=== PATIENT | female | born 1960 | race African-American/Black ===

== ENCOUNTER 2018-12-22 07:25 | Inpatient (IN) ==
[2018-12-22 09:03] LABS: INR 0.99; PROTIME 13.9 Seconds (11.0-16.0)
[2018-12-22 09:04] LABS: PTT 31.6 Seconds (22.3-41.8)
[2018-12-22] MEDS ORDERED: NS 1,000 ML ONE (11:46)
[2018-12-22 12:24] LABS: URINE SOURCE CATH
[2018-12-22 12:35] LABS: BILIRUBIN URINE NEGATIVE (NEGATIVE); BLOOD URINE LARGE (NEGATIVE); COLOR BROWN; GLUCOSE URINE 70 mg/dL (NEGATIVE); KETONE URINE NEGATIVE (NEGATIVE); LEUKOCYTES URINE TRACE (NEGATIVE); NITRITE URINE NEGATIVE (NEGATIVE); PROTEIN URINE 600 mg/dL (NEGATIVE); SP GRAVITY URINE 1.017; TURBIDITY URINE TURBID (CLEAR); UROBILINOGEN URINE NORMAL (NORMAL)
--- NOTE | 2018-12-22 13:04 | Diag Imaging Result Doc PS360 ---
EXAM: CT RENAL BX, PERCUTANEOUS INDICATION: RENAL BX TECHNIQUE: COMPARISON: None. FINDINGS: Risks, benefits, and alternatives were discussed with the patient and informed consent was obtained. Patient was placed in a prone position and was prepped and draped in sterile fashion. Local anesthesia was achieved with 1% lidocaine solution. Using CT guidance and a coaxial biopsy needle system, a 1.3 cm core biopsies of the right renal cortex at the inferior aspect of the kidney were obtained. There were no known immediate complications. The patient will be monitored in outpatient surgery. IMPRESSION: Technically successful CT-guided right renal biopsy. Electronically signed by Calixto Hendrix 12/22/2018 1:02 PM
[2018-12-22 13:10] LABS: UR EPITHELIAL CELLS <10 /HPF (<10); URINE BACTERIA NEGATIVE /HPF; URINE RBC TNTC /HPF (<10); URINE WBC <10 /HPF (<10)
[2018-12-22] MEDS ORDERED: TYLENOL PO PRN (13:53)
[2018-12-22] MEDS ORDERED: NS 1,000 ML IV SCH (14:00)
[2018-12-22 15:02] LABS: HEMATOCRIT 22.6 % (37.0-47.0); HEMOGLOBIN 7.6 g/dL (12.0-16.0)
[2018-12-22 15:06] LABS: CREATININE 2.5 mg/dL (0.5-0.9); POTASSIUM 5.4 mmol/L (3.5-5.1)
--- NOTE | 2018-12-22 15:14 | Diag Imaging Result Doc PS360 ---
EXAM: CT ABDOMEN/PELVIS W/O CONTRAST INDICATION: S/P renal bx hematuria TECHNIQUE: This exam was performed using automated exposure control, adjustment of mA or kV according to patient size, and/or use of iterative reconstruction technique. COMPARISON: Prebiopsy CT of the abdomen dated 12/22/2018 FINDINGS: There is a small amount of perinephric acute blood on the right at the biopsy site, but it is not more than would be expected status post renal biopsy. However, there is a significant amount of blood in the right renal collecting system and right ureter and a large amount of blood in the urinary bladder lumen. The right renal collecting system is mildly dilated as a result of the blood in the collecting system and ureter. This dilation was not present on the prebiopsy scan. There is a Hicks catheter in the urinary bladder lumen. The bladder is partially distended. There are also a couple of tiny droplets of air around the right kidney, which are expected from the recent biopsy. The liver, gallbladder, spleen, pancreas, and adrenal glands are essentially unremarkable. There has been a prior hysterectomy. The appendix is normal. The remainder of the GI tract is essentially unremarkable. IMPRESSION: 1.Small amount of right perirenal acute blood, but it is not more than would be expected given the recent renal biopsy. 2.Significant amount of acute blood in the right renal collecting system, right ureter, and urinary bladder with development of mild hydronephrosis as compared to the prebiopsy scan. Electronically signed by Calixto Hendrix 12/22/2018 3:12 PM
[2018-12-22] MEDS ORDERED: DDAVP IV ONE ×2 (20:30→21:00)
--- NOTE | 2018-12-22 20:55 | NEPHROLOGY CONSULTATION ---
DATE: 12/22/2018 REASON FOR OUTPATIENT OBSERVATION: Elective renal biopsy. REASON FOR INPATIENT OBSERVATION AND CONSULTATION: Post biopsy bleeding. HISTORY OF PRESENT ILLNESS: Ms. Pompa is a 58-year-old woman with diabetes, hypertension, and hyperlipidemia. She is followed by Dr. Ribeiro in the outpatient CKD Clinic. Based on recent change in her kidney function, they discussed and planned for diagnostic renal biopsy. She was taking 1 aspirin a day, but no other anticoagulation. Blood pressure was well controlled in the office. She underwent her biopsy this morning at approximately 8:00. Subsequent to that, she had hematuria with clots and some difficulty initiating her stream and in pain. She did not develop hypotension or tachycardia. Hicks catheter was placed and she had significant amount of bloody urine, but immediate relief of her discomfort. Because of her significant bleeding and marginal hemoglobin on her preoperative labs (8.2), she is admitted for observation and she will receive 1 unit of packed red blood cells. Her examination performed at approximately noon found her to have no pain, no shortness of breath, no chest discomfort, etc. PAST MEDICAL HISTORY: As above. HOME MEDICATIONS: Include: 1. Aspirin. 2. Benazepril. 3. Cholecalciferol. 4. Cyanocobalamin. 5. Diltiazem, 6. Gemfibrozil. 7. Loratadine. 8. Metoprolol. 9. Pravastatin. 10. Spironolactone. 11. Allopurinol. 12. Iron. 13. Omeprazole. ALLERGIES: Codeine. SOCIAL HISTORY: Otherwise noncontributory. FAMILY HISTORY: Otherwise noncontributory. REVIEW OF SYSTEMS: Otherwise noncontributory. PHYSICAL EXAMINATION: Vital Signs: Blood pressure 130/104, heart rate 107, respirations 20, afebrile. General: No acute distress. Skin: Warm and dry. Conjunctivae are pink. Pupils are equal. Neck: Neck veins are not distended. HEENT: Oropharynx is clear. Normal tongue. Normal teeth. Heart: PMI is nondisplaced. Regular rate and rhythm. Mildly tachycardic. No gallops or murmurs. Lungs: Equal excursion, equal breath sounds. No crackles or wheezes. Abdomen: Soft, nontender. Bowel sounds are present. No organomegaly or masses. Extremities: No edema, clubbing, or cyanosis. IMPRESSION: Post biopsy bleeding. She will need to be admitted to the hospital for observation. I have reached out to the hospitalist team and they will take the lead on that. 1 unit of packed red blood cells was ordered. She will continue her home medications and we will monitor her hemoglobin carefully. Further recommendations to follow. cc: Tristan Shah MD
[2018-12-22] MEDS ORDERED: NS IV ONE (21:00)
[2018-12-22] MEDS: LOPRESSOR PO SCH (23:14)
--- NOTE | 2018-12-23 03:45 | HISTORY AND PHYSICAL ---
PRIMARY CARE PHYSICIAN: Dr. Ribeiro. CORRECTIVE THERAPIST: Dr. Shah. CHIEF COMPLAINT: Status post renal biopsy as an outpatient today with postop hematuria, symptomatic anemia, and dizziness and lightheadedness. HISTORY OF PRESENTING ILLNESS: This is a 58-year-old, female who presented to outpatient surgery initially this morning for an outpatient renal CT biopsy. The patient had the procedure and did well during the procedure. Returned to outpatient surgery and began passing some bright red clots of blood vaginally. Stated she felt pressure, that she needed to urinate but was unable. They inserted an indwelling Mosquera catheter and immediately got urine return that was sahni-colored in color. She complained of being dizzy and lightheaded. They rechecked a hematocrit. That was 23.3. Was contacted by Dr. Shah, nephrology, who felt that the patient needed to be admitted to the hospitalist services for overnight observation for further evaluation and treatment. PAST MEDICAL HISTORY: Hypertensive neuropathy with proteinuria, chronic kidney disease stage 3, gout, GERD, anemia with chronic kidney disease with iron deficiency anemia and vitamin D deficiency. PAST SURGICAL HISTORY: section. FAMILY HISTORY: Reviewed and noncontributory. SOCIAL HISTORY: She currently lives with her boyfriend. Denied any tobacco, alcohol, or illicit drug use. ALLERGIES: Codeine. HOME MEDICATIONS: A current list will need to be obtained, reconciled, reviewed, and restarted as appropriate, and will place an order for nursing to update and confirm home medications. LABORATORY DATA: This morning, she had a hemoglobin that was 8.2. This afternoon, status post procedure, they did a hematocrit that was 23.3. The PT and INR were 13.9 and 0.99. Urinalysis with a large amount of blood, trace leukocytes, negative bacteria. Urine culture is pending. REVIEW OF SYSTEMS: She denied any fever or chills. She did have some blurred vision, dizziness, lightheadedness. Denied any chest pain, coughing, shortness of breath. She denied any abdominal pain except for when she first started having some clots that she felt like she needed to urinate but could not. Once the indwelling Mosquera catheter was inserted, she no longer felt that pressure. Denied any nausea, vomiting, diarrhea, constipation. She denies any burning with urination. She was passing some bright red clots of blood initially status post her procedure. Now has some sahni-colored urine noted in her Mosquera catheter bag. PHYSICAL EXAMINATION: VITAL SIGNS: On arrival, she had a temperature of 97.4 degrees, pulse 95, respirations 18, blood pressure 136/76, saturating 100% on room air. GENERAL: This is a 58-year-old, female who is lying in the bed and answers questions appropriately. HEENT: Normocephalic, atraumatic. Normal ENT inspection. Oropharynx and nares are clear. Eyes: Pupils are equal, round, and reactive to light and accommodation. Extraocular movements are intact. NECK: Normal inspection. Normal range of motion. LUNGS: Clear to auscultation bilaterally with equal lung expansion and chest wall movement. HEART: With regular rate and rhythm. No murmurs, rubs, or gallops. ABDOMEN: Soft, nontender, nondistended. Bowel sounds are present x4 quadrants. GENITOURINARY: She is noted to have an indwelling Mosquera catheter, draining sahni-colored urine at this time. MUSCULOSKELETAL: She has 5/5 strength x4 extremities. NEUROLOGICAL: The cranial nerves 2-12 are grossly intact. ASSESSMENT: 1. Status post renal CT biopsy. 2. Hematuria secondary to #1. 3. Chronic kidney disease stage 3. 4. Hypertension. PLAN: She will be admitted to the surgical unit, placed on a regular diet, telemetry. We will consult nephrology. We will attempt to do a CT of the abdomen and pelvis with IV contrast but we need to check a BUN and creatinine first. If not, we will do a CT of the abdomen and pelvis without contrast. Placed on normal saline at 75 mL an hour, Tylenol 650 p.o. q.6 hours p.r.n., Zofran 4 mg IV q.[address] SCDs for DVT prophylaxis. Remain on strict bedrest. We are going to transfuse 1 unit of packed red blood cells now. Then we will do hemoglobin and hematocrit q.4 hours x6. We will update and verify home medications, and restart as appropriate. The patient does states she has taken her home medications today already so we will review those and see what we need to continue once they are confirmed. Dictated by KEIRY Jordan for Manjit Hayes MD cc: KEIRY Jordan Dr. Agree with above. the following is my own face to face eval. Patient largely asymptomatic at this point. abdomen soft, nontender. however, large bright red blood draining from mosquera which is ongoing. patient placed on bedrest. monitor blood counts and transfuse as needed. MTDD
[2018-12-23 07:04] LABS: HEMATOCRIT 22.4 % (37.0-47.0); HEMOGLOBIN 7.4 g/dL (12.0-16.0); MCH 30.2 PG (27-31); MCV 91.4 FL (81-99); MPV 10.2 FL (7.4-10.4); RBC 2.45 XMIL (4.2-5.4); RDW 14.9 % (11.5-14.5); WBC 9.38 X1000 (4.8-10.8)
[2018-12-23 07:10] LABS: ALBUMIN 2.9 g/dL (3.5-5.0); CALCIUM 8.4 mg/dL (8.8-10.2); CREATININE 2.6 mg/dL (0.5-0.9); PHOSPHORUS 4.4 mg/dL (2.7-4.5); POTASSIUM 5.8 mmol/L (3.5-5.1)
--- NOTE | 2018-12-23 10:31 | NEPHROLOGY PROGRESS NOTE ---
DATE: 12/23/2018 TIME SEEN: 06:30 a.m. SUBJECTIVE: Patient's hematocrit has held stable overnight. Patient has had no new issues. OBJECTIVE: Vital Signs: Temperature 98.3 degrees, pulse 86, respiratory rate 18, blood pressure 99/57. Intake 2.1 L. Output 950 mL via Hicks catheter. General: This is a middle-aged female, resting in bed. No acute distress. HEENT: Normocephalic, atraumatic. Conjunctivae pink. Oral mucosa moist. Neck: Supple. No JVD. Cardiovascular: Regular rate and rhythm. Pulmonary: She is clear bilaterally. No increased work of breathing. Abdomen: Soft, positive bowel sounds. Genitourinary: She has a Hicks catheter. She has a dark maroon-colored urine noted. Extremities: No clubbing, cyanosis or edema. Integumentary: Skin is warm and dry. LABORATORY DATA: WBC of 9.3, hemoglobin 7.4, hematocrit 22.4, follow-up hematocrit 23.6. ASSESSMENT AND PLAN: Post biopsy bleeding. She continues to have dark maroon urine. We will ask the nurses to irrigate her Hicks catheter and bladder to clear and then allow to drain. They are to notify us if she has further bleeding. Her hemoglobin appears to have dropped slightly. She may need another unit of packed red blood cells. I will check her next set of labs her in a couple of hours and make that decision. Her hematocrit appears stable. If her urine remains clear, hopefully we can remove the Hicks catheter and facilitate getting her home. Dictated by KEIRY Castellanos for Tristan Shah MD Face to face encounter, data reviewed, discussed with Asa Bray on 12/23/18. I agree with the above assessment and plan of care. cc: Tristan Shah MD [facility]
[2018-12-23] MEDS ORDERED: LOPRESSOR PO SCH (10:45)
--- NOTE | 2018-12-23 10:55 | PROGRESS NOTE ---
DATE: 12/23/2018 SUBJECTIVE: The patient is sitting up in bed. No complaints voiced at this time. States she has had some tenderness to the right flank area where the biopsy of her kidney was done yesterday. OBJECTIVE: Vital Signs: Temperature 98.8 degrees, pulse 84, respirations 18, blood pressure 120/60, saturating 100% on room air. HEENT: Normocephalic, atraumatic. Normal ENT inspection. Oropharynx and nares are clear. Neck: Normal inspection. Normal range of motion. Lungs: Clear to auscultation bilaterally with equal lung expansion and chest wall movement. Heart: Regular rate and rhythm. No murmurs, rubs, or gallops. Abdomen: Soft, nontender, nondistended. Bowel sounds are present x4 quadrants. Musculoskeletal: Has 5/5 strength in 4 extremities. Neurological: The patient is alert and oriented to person, place, and time. Laboratory Data: Showed a white blood cell count of 9.38, hemoglobin 7.4, hematocrit 22.4. Sodium 141, potassium 5.8, chloride 118, CO2 14, BUN of 40, creatinine 2.6. ASSESSMENT: 1. Status post renal biopsy, right. 2. Hematuria secondary to #1. 3. Anemia secondary to #1 and #2. 4. Chronic kidney disease stage 3. 5. Hypertension. PLAN: She is noted to have had a decrease in her hemoglobin and hematocrit. We are transfusing 1 unit of packed red blood cells at this time. Nurse is at bedside to irrigate Hicks, continues to drain a dark maroon urine. We will continue serial hematocrits q.4 hours. We are going to check another hemoglobin and hematocrit around 1 p.m. today after this unit of blood has infused. Nephrology continues to follow the patient. We will start her back on her home medications as they have been updated and confirmed. Dictated by KEIRY Jordan for Manjit Hayes MD cc: KEIRY Jordan Agree with above. the following is my own face to face assessment. abdomen still with mild R sided tenderness but otherwise benign. still with significant ongoing bleeding. discussed with nephrology. we are attempting to send the patient to [place] for embolization. anticipate her returning here afterwards. DOMINIC
[2018-12-23] MEDS: LOPRESSOR PO SCH ×2 (11:26→21:30)
[2018-12-23] MEDS: FERROUS SULFATE PO SCH ×2 (13:39→17:27)
[2018-12-23] MEDS: PRILOSEC PO SCH (13:39)
[2018-12-23] MEDS: CARDIZEM CD PO SCH (13:39)
[2018-12-23] MEDS: FISH OIL CONCENTRATE PO SCH (13:40)
[2018-12-23] MEDS: ZYLOPRIM PO SCH (13:40)
[2018-12-23] MEDS: VITAMIN D PO SCH (13:40)
[2018-12-23] MEDS: VITAMIN B-12 PO SCH (13:40)
[2018-12-23] MEDS: LOTENSIN PO SCH (13:40)
[2018-12-23] MEDS: LOPID PO SCH ×2 (13:40→21:28)
[2018-12-23] MEDS: CLARITIN PO SCH (13:41)
[2018-12-23 14:10] LABS: HEMATOCRIT 27.9 % (37.0-47.0); HEMOGLOBIN 9.2 g/dL (12.0-16.0)
[2018-12-23] MEDS: ZOFRAN IV PRN (20:18)
[2018-12-23] MEDS ORDERED: MORPHINE IV ONE (20:35)
[2018-12-23] MEDS ORDERED: BENADRYL IV ONE (20:37)
[2018-12-23] MEDS: PRAVACHOL PO SCH (21:28)
[2018-12-23] MEDS ORDERED: SODIUM CHLORIDE 0.9% INJ ONE (23:02)
[2018-12-23] MEDS ORDERED: PHENERGAN IV ONE (23:02)
[2018-12-24] MEDS: ZOFRAN IV PRN (03:52)
[2018-12-24] MEDS: MORPHINE IV PRN ×3 (05:45→19:01)
[2018-12-24] MEDS: PRILOSEC PO SCH ×2 (05:48→08:19)
[2018-12-24] MEDS ORDERED: SODIUM CHLORIDE 0.9% INJ ONE (06:40)
[2018-12-24] MEDS ORDERED: PHENERGAN IV ONE (06:40)
[2018-12-24 06:46] LABS: HEMATOCRIT 29.5 % (37.0-47.0); HEMOGLOBIN 9.7 g/dL (12.0-16.0); MCH 30.3 PG (27-31); MCHC 32.9 g/dL (33-37); MCV 92.2 FL (81-99); RBC 3.2 XMIL (4.2-5.4); RDW 15.5 % (11.5-14.5); WBC 18.53 X1000 (4.8-10.8)
[2018-12-24 07:26] LABS: ALBUMIN 3.3 g/dL (3.5-5.0); CREATININE 2.9 mg/dL (0.5-0.9); PHOSPHORUS 6.1 mg/dL (2.7-4.5)
[2018-12-24 07:46] LABS: POTASSIUM 6.3 mmol/L (3.5-5.1)
[2018-12-24] MEDS ORDERED: COMPAZINE IV PRN (07:48)
[2018-12-24] MEDS ORDERED: KAYEXALATE PO ONE (07:50)
[2018-12-24] MEDS ORDERED: PHENERGAN PR PRN (07:50)
[2018-12-24] MEDS: VITAMIN B-12 PO SCH (08:46)
[2018-12-24] MEDS: VITAMIN D PO SCH (08:46)
[2018-12-24] MEDS: LOPRESSOR PO SCH ×2 (08:46→22:48)
[2018-12-24] MEDS: LOTENSIN PO SCH (08:46)
[2018-12-24] MEDS: FERROUS SULFATE PO SCH ×3 (08:46→17:33)
[2018-12-24] MEDS: FISH OIL CONCENTRATE PO SCH (08:46)
[2018-12-24] MEDS: ZYLOPRIM PO SCH (08:46)
[2018-12-24] MEDS: LOPID PO SCH ×2 (08:46→22:48)
[2018-12-24] MEDS: CLARITIN PO SCH (08:46)
[2018-12-24] MEDS: CARDIZEM CD PO SCH (08:46)
[2018-12-24] MEDS: NS 1,000 ML IV SCH (13:27)
[2018-12-24 16:08] LABS: ESTIMATED GFR 18
[2018-12-24 16:09] LABS: AGAP 8; ALBUMIN 3.2 g/dL (3.5-5.0); BUN 48 mg/dL (8-22); CALCIUM 8.9 mg/dL (8.8-10.2); CHLORIDE 115 mmol/L (98-107); COSMO 288; CREATININE 3.2 mg/dL (0.5-0.9); GLUCOSE 126 mg/dL (70-104); PHOSPHORUS 4.9 mg/dL (2.7-4.5); POTASSIUM 5.4 mmol/L (3.5-5.1); SODIUM 137 mmol/L (136-145); TCO2 14 mmol/L (25-35)
--- NOTE | 2018-12-24 16:22 | Diag Imaging Result Doc PS360 ---
EXAM: CT ABDOMEN/PELVIS W/O CONTRAST 12/24/2018 HISTORY: fever, leukocytosis, nausea. rcnt kidney biopsy TECHNIQUE: This exam was performed using automated exposure control, adjustment of mA or kV according to patient size, and/or use of iterative reconstruction technique. COMMENT: There is minimal atelectasis in the posterior costophrenic sulcus of the right lower lobe otherwise has been no significant change since 12/22/2018. There is perinephric stranding on the right. There is hyperdense material throughout the collecting system of the right kidney and into the right ureter as well as in the bladder. There is a Hicks catheter. There may be blood clots in the bladder. The hyperdense material in the collecting system on the right is denser than it was at the time the previous examination. This may result from interval intravenous contrast administration. There are small stones dependently in the gallbladder as on the previous examination. There is some dense material within the stomach which may be ingested contrast or other hyperdense material. There is stranding around the second portion of the duodenum which was not clearly present at the time the previous study but may be related to inflammatory changes in the anterior pararenal space. There is a focus of decreased attenuation in the posterior inferior portion of the right kidney which is probably a cyst and was apparently present previously. This has a CT density of 13 Hounsfield units. Some gas bubbles are seen in the perinephric space laterally. This was also the case previously and is presumably related to the previous biopsy. There is less apparent perinephric hematoma than on the previous study. There is generally increased edema and stranding within and around Gerota's fascia compared to the previous study. The patient has had recent embolization of a bleeding focus in the right kidney communicating with the collecting system and producing hematuria as a result of the recent kidney biopsy. It is possible post embolization affects could be responsible for some of the perinephric inflammation. The regional skeleton appears to be stable. IMPRESSION: 1. Excreted contrast and possible blood clots in the right collecting system and urinary bladder. Slightly worsened perinephric edema and edema and inflammatory changes in the anterior pararenal space on the right. 2. Inflammatory changes around the second portion of the duodenum which may be secondary to the above or due to interval development of duodenitis or duodenal ulcer disease. The findings were discussed with Manjit Hayes MD at 12/24/2018 4:19 PM. Electronically signed by Jerome Shannon 12/24/2018 4:19 PM
[2018-12-24 16:46] LABS: ALLEN TEST YES; BE -13.1 mmoll (-3.0-3.0); BLOOD TYPE ARTERIAL; HCO3-(ACT) 14.7 mmoll (20.0-26.0); O2(CT) 13.4 mL/dL (15.0-23.0); O2HB 95.7 % (95.0-99.0); PCO2(98.6) 27 mmHg (35-45); PO2(98.6) 87 mmHg (60-100); SAMPLE BLOOD; SAO2 98.4 % (95.0-100.0); THB 9.9 g/dL (11.5-17.4); pH(98.6) 7.27 (7.35-7.45)
[2018-12-24 16:56] LABS: ACETONE SERUM NEGATIVE (NEGATIVE)
--- NOTE | 2018-12-24 17:12 | NEPHROLOGY PROGRESS NOTE ---
DATE: 12/24/2018 SUBJECTIVE: She is feeling better today. She was passing blood clots this morning, but that has cleared up. No pain. She has not been out of bed yet. She was able to eat. OBJECTIVE: Blood pressure 153/65, heart rate 106, respirations 16, afebrile. Generally, no acute distress. Skin is warm and dry. Conjunctivae are pink. Neck veins are not distended. Heart is regular, no gallops or murmurs. Lungs are equal. No crackles or wheezes. Abdomen is soft, nontender. Bowel sounds present. Extremities: No edema, clubbing, or cyanosis. IMPRESSION: 1. Chronic kidney disease. I do not have a report back again on her kidney biopsy. 2. Post biopsy bleeding. She underwent intervention by Interventional Radiology in [place]. Her bleeding is improved and her hemoglobin is stable. We will begin to get her up today. 3. She does have a low-grade fever and a white count of 18,000. This may all be simply from being in bed and stress. We will observe overnight. 4. Her potassium was moderately elevated, and she received a dose of Kayexalate this morning. 5. She also has an anion gap acidosis so I am checking her lactate and acetone. cc: Tristan Shah MD
--- NOTE | 2018-12-24 17:14 | PROGRESS NOTE ---
DATE: 12/24/2018 INTERVAL HISTORY: Because of ongoing bleeding yesterday, the patient was transferred to [place] [facility] for embolization to stop her renal bleeding. This appears to have worked as the patient's hematuria is almost entirely resolved at this point. However, today the patient has had increased nausea and vomiting, some slightly increased pain on the right abdomen, and later had some mildly elevated temperatures. She denies cough, dyspnea, chest pain, diarrhea. REVIEW OF SYSTEMS: A 12-point review of systems negative except as per interval history. LABORATORY DATA: WBC 18.5, hemoglobin 9.7, hematocrit 29.5, platelet 216,000. Initial potassium 6.3, repeat 5.4. Initial bicarb 8, repeat 14. Initial creatinine 2.9, repeat 3.2. Glucose 118, phosphorus 6.1, repeat 4.9. Albumin 3.3. Lactate pending. Blood cultures pending. IMAGING: Repeat CT abdomen and pelvis with contrast and possible clots in the right collecting system and bladder, minimally worse stranding/inflammatory changes around the right kidney, also with inflammatory changes around the second portion of the duodenum, which could be due to the above or due to development of duodenitis or duodenal ulcer disease. VITAL SIGNS: T-max 99.9 degrees, pulse 104, respirations 16, blood pressure 158/80, O2 saturation 99% on room air. PHYSICAL EXAMINATION: General: No acute distress. Ill appearing. Vital Signs: As above. HEENT: Normocephalic, atraumatic. Slightly dry mucous membranes. Neck: No cervical adenopathy. Cardiovascular: Minimally tachycardic but regular. No murmurs noted. Pulmonary: Clear to auscultation bilaterally. No wheezing, rales, or rhonchi. Abdomen: Soft. Mild to moderate right-sided tenderness without rebound or guarding. Bowel sounds present. Extremities: Peripheral pulses intact. No clubbing, cyanosis, or edema. Neurologic: Cranial nerves grossly intact. No focal deficits identified. Psychiatric: Normal mood and affect. Awake, alert and oriented x3. Skin: No rales or lesions identified. ASSESSMENT AND PLAN: 1. Significant hematuria and bleeding status post renal biopsy. The patient was sent to [place] [facility] for embolization 12/23/2018. Hicks output since then has gradually cleared and become less bloody. On CT scan, still some debris that is likely blood in the collecting system and bladder, but overall renal bleeding appears to have at least slowed if not stalled. The patient still with adequate drainage from Hicks. Monitor output closely. 2. Nausea, vomiting, abdominal pain, and possible sepsis. The patient with nausea, vomiting, tachycardia, markedly increased white count and some mild elevations in temperature without suyapa fever. Because of her constellation of symptoms, there is concern for new or developing infection. Repeat CT obtained as above with no definite infection. On discussion with Radiology, stranding around kidney consistent with the procedures that she has had. No definite infarction of the kidney. Some stranding around the duodenum that could represent duodenitis or ulcer. Given the above plus new anion gap acidosis, the patient was placed on empiric Zosyn. Deferring more aggressive fluids in the setting of worsening kidney function. Blood cultures pending. Lactic acid pending, but on recheck of labs, gap acidosis appears to be largely resolved, although she still has a bit of a non gap metabolic acidosis. Continue antibiotics for now pending culture data and clinical course. 3. Possible duodenitis or duodenal ulcer. Blood counts appear stable today but will recheck this afternoon. Place on Protonix 40 b.i.d. If blood counts appear to be going back down, then we will ask GI to evaluate. 4. Hyperkalemia. The patient with worsening hyperkalemia today with potassium up to 6.3. Given Kayexalate after treatment for her nausea and on repeat, still slightly elevated, but improved to 5.4. Continue to monitor closely. 5. Acute kidney injury. The patient with creatinine trending up over the last couple of days. Nephrology on board and monitoring. Continue gentle fluids. Discontinuing ARSENIO inhibitor for now. 6. Gout. Allopurinol decreased in light of kidney function. 7. Hypertension, holding ARSENIO. Continue metoprolol and diltiazem for now. 8. Hyperlipidemia. Continue statin. 9. Gastroesophageal reflux disease. Proton pump inhibitor as above. [facility]
[2018-12-24 17:16] LABS: HEMATOCRIT 28.5 % (37.0-47.0); HEMOGLOBIN 9.5 g/dL (12.0-16.0)
[2018-12-24] MEDS: ZOSYN 2.25 GM in NS 50 ML IV SCH ×2 (17:33→22:57)
[2018-12-24] MEDS: PROTONIX IV SCH (17:33)
[2018-12-24] MEDS: PRAVACHOL PO SCH (22:49)
[2018-12-25] MEDS: ZOSYN 2.25 GM in NS 50 ML IV SCH ×5 (04:16→23:18)
[2018-12-25] MEDS: NS 1,000 ML IV SCH ×2 (04:16→21:24)
[2018-12-25] MEDS: SODIUM CHLORIDE 0.9% INJ SCH ×2 (05:43→17:35)
[2018-12-25] MEDS: PROTONIX IV SCH ×2 (05:43→17:35)
[2018-12-25 06:24] LABS: HEMOGLOBIN 7.5 g/dL (12.0-16.0); MCH 29.9 PG (27-31); MCHC 32.6 g/dL (33-37); MCV 91.6 FL (81-99); MPV 9.7 FL (7.4-10.4); RBC 2.51 XMIL (4.2-5.4); RDW 14.8 % (11.5-14.5); WBC 15.24 X1000 (4.8-10.8)
[2018-12-25 06:53] LABS: ALBUMIN 2.7 g/dL (3.5-5.0); CALCIUM 7.8 mg/dL (8.8-10.2); CREATININE 3.5 mg/dL (0.5-0.9); PHOSPHORUS 5.2 mg/dL (2.7-4.5); POTASSIUM 5.1 mmol/L (3.5-5.1)
[2018-12-25] MEDS ORDERED: AMIDATE ONE (10:40)
[2018-12-25] MEDS ORDERED: XYLOCAINE-MPF 2% ONE (10:40)
[2018-12-25] MEDS ORDERED: QUELICIN (DOSE) ONE (10:40)
[2018-12-25] MEDS ORDERED: ZOFRAN ONE (10:40)
[2018-12-25] MEDS: FERROUS SULFATE PO SCH ×3 (12:04→17:35)
[2018-12-25] MEDS: LOPRESSOR PO SCH ×2 (12:05→21:18)
[2018-12-25] MEDS ORDERED: FLOMAX PO ONE (12:15)
[2018-12-25] MEDS: CARDIZEM CD PO SCH (12:16)
[2018-12-25] MEDS: ZYLOPRIM PO SCH (12:17)
[2018-12-25] MEDS: VITAMIN B-12 PO SCH (12:17)
[2018-12-25] MEDS: VITAMIN D PO SCH (12:17)
[2018-12-25] MEDS: CLARITIN PO SCH (12:18)
[2018-12-25] MEDS: FISH OIL CONCENTRATE PO SCH (12:18)
[2018-12-25] MEDS: LOPID PO SCH ×2 (12:18→21:19)
[2018-12-25] MEDS: MORPHINE IV PRN (12:25)
[2018-12-25] MEDS: CARAFATE LIQUID PO SCH ×3 (14:04→21:18)
--- NOTE | 2018-12-25 14:30 | PROGRESS NOTE ---
DATE: 12/25/2018 INTERVAL HISTORY: The patient still with nausea. Occasional small volume of vomiting. This morning had a few tiny streaks of blood in her vomit but no suyapa hematemesis or coffee ground emesis. She was taken down by Urology this morning for cystoscopy and clean out residual clots right collecting system and bladder on CT yesterday. Reports she did have some blood clots when they went in, but stated they were able to clean this out. Some blood in urine since then but appears to be clearing. No other acute events. The patient continues to deny cough, dyspnea, chest pain, diarrhea. REVIEW OF SYSTEMS: Twelve point review of systems negative except as per interval history. LABS: WBC 15.2, hemoglobin 7.5, hematocrit 23.0, platelets 167,000. Sodium 141, potassium 5.1, bicarb 14, BUN 51, creatinine 3.5, glucose 112, potassium 7.8, phosphorus 5.2, albumin 2.7. VITALS: T-max at 100.5, pulse 89, respirations 19, blood pressure 152/73, O2 saturation 100% on room air. PHYSICAL EXAMINATION: General: No acute distress, but ill-appearing. Vitals: As above. HEENT: Normocephalic, atraumatic. No cervical adenopathy. Cardiovascular: Regular rate and rhythm, no murmurs noted. Pulmonary: Clear to auscultation bilaterally. No wheezes, rales, or rhonchi. Abdomen: Soft. Mild right-sided tenderness without rebound or guarding. Appears slightly improved. Bowel sounds present. Extremities: Peripheral pulses intact. No cyanosis, clubbing or edema. Neurologic: Cranial nerves grossly intact. No focal deficits identified. Psychiatric: Normal mood and affect. Awake, alert, oriented x3. Skin: No new rashes or lesions identified. ASSESSMENT AND PLAN: 1. Significant hematuria and bleeding, status post renal biopsy. Patient sent to [place] for embolization 12/23. Hicks output then gradually cleared and became less bloody. However, on CT scan there was still some debris/blood in collecting system and bladder on the right. Taken by Urology for clean out this morning. Still some blood in urine, but significantly less than previous and appears to be clearing. Continue to monitor drainage from [place] and urine output. 2. Nausea, vomiting, abdominal pain, sepsis. After embolization the patient developed some nausea, vomiting, tachycardia, worsening leukocytosis and low-grade fever. Repeat CT was obtained which showed some blockage as above, but no obvious source of infection. Did show possible duodenitis versus duodenal ulcer as discussed below. Lactic acid negative. Blood cultures no growth to date. She was placed on empiric antibiotic with Zosyn which we will continue for now but no clear source of infection identified thus far. 3. Acute blood loss anemia, possible duodenitis versus duodenal ulcer. Blood counts stable on recheck yesterday but significant decrease this morning. No melena, suyapa hematemesis or coffee-grounds emesis, but has had a few streaks of blood in her vomit and possible ulcer on CT as above. The patient on Protonix b.i.d. Consulting GI. We will transfuse 1 unit. It is not certain at this point whether her blood loss is still from her kidney or from a GI source. 4. Hyperkalemia improved with Kayexalate and fluids. 5. Acute kidney injury. Patient with creatinine still trending up. Nephrology on board. Monitoring. Continue gentle fluids. Off of FARHAT inhibitor. Urologic procedure as above. 6. Gout. Continue allopurinol at decreased dose. 7. Hypertension. Holding Farhat. Continue metoprolol and diltiazem. 8. Hyperlipidemia. Continue statin. 9. Gastroesophageal reflux disease. PPI as above.
--- NOTE | 2018-12-25 14:59 | CONSULTATION ---
DATE OF CONSULTATION: 12/25/2018 CHIEF COMPLAINT: 1. Hematuria. 2. Right hydronephrosis. PRESENT ILLNESS: Ms. Pompa is a 58-year-old -[place] female with history of diabetes, hypertension, hyperlipidemia, who is followed in the chronic kidney disease Clinic by Dr. Ribeiro. Patient recently had a change in renal function and underwent a renal biopsy on 12/22/2018. Following this, she had significant hematuria and clot passage and difficulty with urination. She developed worsening hematuria and anemia, and was transferred to [place] for a renal embolization. This was performed. The patient never had any hypotension or tachycardia. However, she did have significant drop in her hematocrit requiring blood transfusions. Urology was consulted today after repeat imaging yesterday showed persistent hydronephrosis with contrast within the right collecting system, which is new from pre-biopsy imaging. Concern arose that the patient is having worsening function with a creatinine elevated at 3.5 today from 2.5 preprocedure. Urology was consulted for further recommendations. PAST MEDICAL HISTORY: 1. Chronic kidney disease. 2. Hypertension. 3. Hyperlipidemia. 4. Type 2 diabetes. PAST SURGICAL HISTORY: 1. . 2. Hysterectomy. ALLERGIES: Codeine. MEDICATIONS: 1. Aspirin. 2. Benazepril. 3. Vitamin D. 4. Cyanocobalamin. 5. Citalopram. 6. Gemfibrozil. 7. Loratadine. 8. Metoprolol. 9. Pravastatin. 10. Spironolactone. 11. Allopurinol. 12. Iron. 13. Omeprazole. SOCIAL HISTORY: Denies tobacco, alcohol, or illicit drug use. FAMILY HISTORY: Denies history of malignancies. REVIEW OF SYSTEMS: Twelve-point review of systems performed with all pertinent positives and negatives in HPI. PHYSICAL EXAMINATION: Vital Signs: Temperature 99.2 degrees, pulse 85, blood pressure 128/54, oxygen saturation 98% on room air. General: No acute distress. Resting comfortably in bed, alert and oriented x3. HEENT: Normocephalic, atraumatic. Pupils equal, round, reactive to light. The patient wearing glasses. Neck: Trachea midline. No obvious deformities. Respiratory: Good respiratory effort without audible wheezing or rales. Cardiovascular: 1+ lower extremity edema. Regular rate and rhythm. Abdomen: Soft, nontender, nondistended. Lower midline abdominal incision. : No suprapubic tenderness. No CVA tenderness. Urine draining with brownish appearing urine that seems to be clearing compared to urine in the bag. Neurologic: Gross motor and sensory intact. Musculoskeletal: Moving all extremities. Skin: No obvious skin rashes or lesions. LABS: White blood cell count 15.2, hemoglobin 7.5, hematocrit 23, platelets 167,000. Sodium 141, potassium 5.1, chloride 117, bicarb 14, BUN 51, creatinine 3.5, glucose 112, calcium 7.8. IMAGING: CT of pelvis 12/24/2018 was reviewed which showed contrast present within the collecting system with moderate to severe right hydronephrosis. No obvious obstructing lesion. However, it is difficult to completely visualize the distal ureter as it is not filled with contrast. The patient is having evidence of small amount of stranding around the kidney as well as a small cyst in the location of the prior biopsy in the right parenchyma. ASSESSMENT AND PLAN: Ms. Pompa is a 58-year-old with hypertension, hyperlipidemia, chronic kidney disease, and type 2 diabetes, who presents in consultation regarding right hydronephrosis, acute on chronic kidney disease, and hematuria. The patient has had worsening renal function from baseline of 2.5 to 3.5 today. The patient underwent a renal biopsy on 12/22/2018 and required embolization at [facility] due to bleeding. Patient had a CT scan yesterday that showed worsening right collecting system hydroureteronephrosis. Her renal function has been worsening. Nephrology called today regarding evaluation and consideration for ureteral stent placement. The patient does have retained contrast in the collecting system and appears to not be draining well. Talking with the patient, it was recommended to proceed with cystoscopy and right ureteral stent placement. Risks, benefits, alternatives to the surgical procedure discussed with patient. Reviewed the side effects including worsening hematuria, flank pain, urgency, frequency of urination. After thorough discussion patient elected to proceed. cc: MD DOMINIC Moore
--- NOTE | 2018-12-25 15:18 | NEPHROLOGY PROGRESS NOTE ---
DATE: 12/25/2018 SUBJECTIVE: She is feeling better as far as she is concerned. She states she has been able to eat and is not having any pain. She has not really been out of bed however. OBJECTIVE: Vital Signs: Blood pressure 128/54, heart rate 85, respiration 18, temperature 99.2 degrees. General: No acute distress. Skin: Warm and dry. Conjunctivae are pink. Neck: Neck veins are not distended. Heart: Regular. No gallops. Lungs: Equal. No crackles. Abdomen: Soft, nontender. Bowel sounds present. Extremities: No edema, clubbing or cyanosis. IMPRESSION: 1. Post biopsy bleeding. Status post coil embolization. Hemoglobin is low again today. Will repeat her hemoglobin to verify. She may need another transfusion. Her urine has dark blood only. The staff states that her urine cleared up during the day yesterday but was dark again overnight. I will ask urology to assist with her care. I have discussed this directly with Dr. Watts. 2. Acute kidney injury. Her CT still has hydronephrosis on the right which may contribute to rise in her creatinine. Her hyperkalemia is improved and her acid-base balance is stable. cc: Tristan Shah MD
--- NOTE | 2018-12-25 16:21 | OPERATIVE NOTE ---
PROCEDURE DATE: 12/25/2018 PREOPERATIVE DIAGNOSES: 1. Hematuria. 2. Acute on chronic kidney disease. 3. Right hydronephrosis. POSTOPERATIVE DIAGNOSE: 1. Hematuria. 2. Acute on chronic kidney disease. 3. Right hydronephrosis. PROCEDURES PERFORMED: 1. Cystoscopy with clot evacuation. 2. Right retrograde pyelogram. 3. Right ureteral stent placement. SURGEON: Hari Watts MD. COMPLICATIONS: None. BLOOD LOSS: None. SPECIMENS REMOVED: Blood clots from bladder. DRAINS: 1. 6 x 24 cm right ureteral stent. 2. An 18-Guyanese Hicks catheter. OPERATIVE FINDINGS: The patient had a normal urethra. No evidence of any urethral stricture or papillary lesions. On entering the bladder, there was a moderate amount of clot which was irrigated through the cystourethroscope sheath and removed. The entire of the bladder was inspected. There were inflammatory areas throughout, likely related for an indwelling catheter. A moderate amount of sediment and particulate matter was seen throughout the bladder. This was irrigated out. No obvious papillary lesions, diverticulum or cellules were seen within the bladder. Both ureteral orifices visualized. Clear urine was seen from the left ureteral orifice. The right ureteral orifice had mostly sediment and slightly brownish colored urine. Open-ended catheter was then inserted through the scope. Retrograde pyelogram was performed which outlined a normal distal ureter with evidence of dilation with moderate hydroureteronephrosis and dilated collecting system, at which time a 6 x 24-Guyanese ureteral stent was passed up to the kidney with a good curl within the kidney and endoscopically visualized in the bladder. The bladder was irrigated multiple times with good drainage visualized through and around the stent. INDICATIONS FOR PROCEDURE: Ms Pompa is a 58-year-old with type 2 diabetes, hypertension, hyperlipidemia, chronic kidney disease, who underwent a renal biopsy on the 12/22/2018, hematuria afterwards with drop in hematocrit, ultimately had to be embolized at [facility] and transferred back to [facility]. The patient has had improvement in her hematuria but has had worsening renal function. Her creatinine is elevated up to 3.5 today from 2.5 day of her procedure. The patient denies any flank pain. A CT of the abdomen and pelvis yesterday showed a significant amount of retained contrast within the collecting system. I was consult by Nephrology regarding worsening renal function and consideration for right ureteral stent placement. Images reviewed and discussed with the patient and it was recommended to proceed with cystoscopy and right ureteral stent placement. Risks, benefits, alternatives of the procedure discussed with the patient and the patient elected to proceed. DESCRIPTION OF PROCEDURE: After informed consent was obtained, the patient is brought to the operating room and placed on the table in supine position. She underwent general anesthesia with antibiotics which were previously started on the floor with Zosyn. At which time she was placed into a dorsal supine position was prepped and draped in usual sterile fashion. A preoperative time-out was performed with all parties in agreement, including anesthesia, surgical and nursing staff, at which time I inserted a 21-Guyanese cystourethroscope into the urethra. It showing a normal caliber urethra. No evidence of stricture disease or papillary lesions. Entered into the bladder and the entirety bladder was inspected. No evidence of any papillary tumors. However, there were some erythematous areas throughout the bladder, likely related to indwelling catheter, and moderate amount of clots were present within the base of the bladder which were irrigated out through the sheath, which allowed better visualization of the bladder itself. The entire bladder was inspected with no evidence of mucosal abnormalities, diverticulum or cellules. Both ureteral orifices visualized with efflux from the left ureteral orifice was clear, from the right there was some sediment which effluxed into the bladder. At which time I inserted an open-ended ureteral catheter into the scope and flushed all bubbles and the right ureteral orifice was cannulized, was injected and outlined a normal distal ureter, which had evidence of hydronephrosis proximal to this, the involving the collecting system and moderate hydronephrosis was seen. Next a ZIPwire was then passed through the open-ended catheter and seen to coil within the collecting system itself. The open-ended catheter was removed and a 6 x 24 cm stent was then backloaded over the wire and passed up into the collecting system. Good curl was seen fluoroscopically within the collecting system and endoscopically in the bladder. Drainage was seen through and around the stent. The bladder was cycled multiple times, and a large amount of sediment and debris was removed from the collecting system itself. No evidence of any active bleeding was seen from the kidney and urine was clear yellow. Patient's bladder was left full and an 18-Guyanese catheter was reinserted with good drainage and inflated with 10 mL sterile water. The patient was then awoken and was taken to recovery in stable condition. We will restart her floor orders. We will continue to monitor hematuria and renal function. We will try her on Flomax for any stent discomfort, will have 1 dose in the PACU and then daily from now on. cc: Hari Watts MD MTDD
--- NOTE | 2018-12-25 16:48 | GASTROENTEROLOGY CONSULTATION ---
DATE: 12/25/2018 REASON FOR CONSULTATION: Anemia. HISTORY OF PRESENT ILLNESS: This is a 58-year-old female who had a recent renal biopsy. Patient had significant hematuria and bleeding status post biopsy. The patient was sent to [facility] on 12/23/2018 for embolization. She continued to have anemia and today patient was taken to OR by Dr. Watts for cystoscopy and right urethral stent placement. Full operative report is not available yet. During evaluation, patient had an abdominal pelvis CT scan that showed extruded contrast and possible blood clots in the right renal collecting system and urinary bladder, slightly worsened perinephric edema and inflammatory changes in the perirenal space on the right. Also was noted inflammatory changes around the 2nd portion of the duodenum which may have been secondary to above findings or the possibility of developing duodenitis or duodenal ulcer disease. At the time of my evaluation, patient had just come back from surgery. She was complaining of a sore throat. She was receiving some of her medications from the nurse and states she was unable to swallow some of them. Patient states she has never had an EGD or colonoscopy that she knows of and she is does not remember seeing a ironer. PAST MEDICAL HISTORY: Hypertensive neuropathy with proteinuria, chronic kidney disease stage 3, gout, GERD, anemia with chronic kidney disease, history of iron-deficiency anemia and vitamin D deficiency. PAST SURGICAL HISTORY: section. ALLERGIES: Codeine unknown reaction. HOME MEDICATIONS: 1. Allopurinol 300 mg daily. 2. Aspirin 325 mg daily. 3. Lotensin 40 mg daily. 4. Vitamin D 3 1000 units daily. 5. Vitamin B12 1000 mcg daily. 6. Cardizem 180 mg daily. 7. Ferrous sulfate 5 mg 3 times a day. 8. Gemfibrozil 600 mg twice a day. 9. Loratadine 10 mg daily. 10. Lopressor 100 mg twice a day. 11. Fish oil 1000 mg daily. 12. Omeprazole 20 mg daily. 13. Pravastatin 40 mg every night. 14. Spironolactone 50 mg daily. SOCIAL HISTORY: Lives with her boyfriend. Denies tobacco or alcohol use. REVIEW OF SYSTEMS: Per history of present illness. PHYSICAL EXAMINATION: Vital Signs: Temperature 99.1 degrees, pulse 89, respirations 19, blood pressure 152/73. General: Patient is awake and alert. She is complaining of a sore throat. She has just gotten back from surgery for a cystoscopy and right ureteral stent placement by Dr. Watts. Abdomen: Soft, mild tenderness. Otherwise, positive bowel sounds. Cardiovascular: Regular rate and rhythm. Pulmonary: Lung sounds essentially clear. Extremities: No lower extremity edema noted. LABORATORY AND: Hematology WBC 15.24, hemoglobin 7.5, hematocrit 23.0, MCV 91.6. Chemistry: Sodium 141, potassium 5.1, chloride 117, CO2 14. BUN 51, creatinine 3.5, glucose 112, calcium 7.8, phosphorus 5.2, albumin 2.7. IMAGING STUDIES: Abdominal pelvis CT scan on 12/24 showed excreted contrast and possible blood clots in the right collecting system and urinary bladder. Inflammatory changes around the 2nd portion of the duodenum, may be possible secondary to recent renal biopsy or the development of duodenitis or duodenal ulcer disease. ASSESSMENT AND PLAN: 1. Recent renal biopsy, recent embolization on 12/23/2018 and today a cystoscopy with right ureteral stent placement. 2. Anemia most likely related to above procedures. 3. Episodes of nausea, vomiting, abdominal pain. She had a CT scan that showed possible inflammatory changes around the duodenum, possible duodenal ulcer disease and patient is on PPI twice daily. She has complained of some sore throat after surgery today. We will add Carafate liquid. We will follow for signs of active GI bleeding. Continue to monitor hemoglobin and hematocrit and transfuse packed red blood cells as needed. I have discussed this case with Dr. Bourne. Dictated by KEIRY Lugo for Clinton Bourne MD cc: KEIRY Sage MD [facility]
[2018-12-25 17:53] LABS: BASO# 0.01 X1000 (0.0-0.2); BASO% 0.1 % (0.0-0.8); EOS# 0.09 X1000 (0.0-0.7); EOS% 0.6 % (0.0-10.0); HEMATOCRIT 29.2 % (37.0-47.0); HEMOGLOBIN 9.6 g/dL (12.0-16.0); IMM GRAN# 0.03 X1000 (0.0-0.04); IMM GRAN% 0.2 % (0.0-0.5); LYMPH# 2.53 X1000 (1.2-3.4); LYMPH% 18.2 % (20.5-51.1); MCH 29.4 PG (27-31); MCHC 32.9 g/dL (33-37); MCV 89.6 FL (81-99); MONO# 1.26 X1000 (0.11-0.59); MONO% 9.1 % (1.7-9.3); MPV 10.3 FL (7.4-10.4); NEUT# 9.95 X1000 (1.4-6.5); NEUT% 71.8 % (42.2-75.2); PLT 170 X1000 (130-400); RBC 3.26 XMIL (4.2-5.4); RDW 14.5 % (11.5-14.5); WBC 13.87 X1000 (4.8-10.8)
[2018-12-25] MEDS: PRAVACHOL PO SCH (21:18)
[2018-12-26] MEDS: CARAFATE LIQUID PO SCH ×4 (02:43→20:36)
[2018-12-26] MEDS: SODIUM CHLORIDE 0.9% INJ SCH ×2 (06:16→16:59)
[2018-12-26] MEDS: PROTONIX IV SCH ×2 (06:16→16:59)
[2018-12-26] MEDS: ZOSYN 2.25 GM in NS 50 ML IV SCH ×4 (06:16→23:13)
--- NOTE | 2018-12-26 09:15 | PROGRESS NOTE ---
DATE: 12/26/2018 SUBJECTIVE: No acute events overnight. The patient was taken to the operating room yesterday for cystoscopy and clot evacuation, and right ureteral stent placement. The patient tolerated this well. She denies any pain today. Her hematuria seems to have improved with clear yellow urine this morning. She denies any nausea, vomiting, or flank pain. The patient does state that she has minimal appetite and GI was consulted yesterday regarding this. OBJECTIVE: Temperature 98.4 degrees, heart rate 88, blood pressure 137/61, oxygen saturation 98% on room air. General: No acute distress. Resting comfortably in bed. Alert and oriented x3. Respiratory: Good respiratory effort without audible wheezing or rales. Abdomen: Soft, nontender, nondistended. No palpable masses or hepatosplenomegaly. : No suprapubic tenderness. No CVA tenderness. Hicks catheter in place with clear yellow urine. No evidence of any sediment or clots. Musculoskeletal: Moving all extremities. White blood cell count 13.87, hemoglobin 9.6, hematocrit 29.2, platelets 170,000 from yesterday. No labs performed from this morning. ASSESSMENT AND PLAN: Ms. Pompa is a 58-year-old with chronic kidney disease, hypertension, hyperlipidemia, and type 2 diabetes who presents in consultation regarding acute on chronic kidney disease with worsening renal function. She has a baseline around 2.5, which has increased up to 3.5 yesterday. The patient underwent a renal biopsy on 12/22/18 and developed significant hematuria and anemia related to this. Ultimately required renal embolization at [facility]. The patient clinically seems to be improving. She denies any flank pain. Was taken to the operating room yesterday for a cystoscopy and right ureteral stent placement. The patient has minimal pain and discomfort. The patient seems to be doing well. I think it is reasonable to remove her catheter in the coming days from a hematuria standpoint, but would leave that up to nephrology and monitoring of her urinary outputs. The patient has labs ordered from this morning, will follow these up and dictate the necessity of her continue catheter, as her hematuria seems to have resolved. We will continue to monitor clinically. Please call with questions or concerns. cc: MD DOMINIC Moore
--- NOTE | 2018-12-26 09:16 | PROGRESS NOTE ---
DATE: 12/26/2018 SUBJECTIVE: Patient notes that overall she is feeling a little bit better. She denies any new complaints. Denies any blood in her emesis or stool. OBJECTIVE: Vitals: Temperature 98, pulse 88, respiratory rate 18, blood pressure 137/61, saturation 98% on room air. General: Patient is awake, very pleasant to talk with. She is in no current respiratory distress. HEENT: Normocephalic. Neck: Supple. CARDIOVASCULAR: Regular rate. No murmurs. Chest: Clear, nonlabored. Abdomen: Soft, nondistended. Extremities: Moves all extremities. Neurologic: No changes. ASSESSMENT: 1. Hematuria. 2. Nausea, vomiting and abdominal pain. 3. Sepsis. 4. Acute blood loss. Hemoglobin and hematocrit stable at 9 and 29. 5. Leukocytosis, improved. 6. Hyperkalemia, improved. 7. Metabolic acidosis. 8. Acute on chronic renal failure. Creatinine continues to climb slightly, currently up to 51 and 3.5. 9. Moderate protein calorie malnutrition. 10. Hypertension. 11. Hyperlipidemia. PLAN: We will continue supportive care. Potassium is better. We will recheck laboratories. We will continue to follow her creatinine with Nephrology. Gastrointestinal is also on board. cc: Ansemlo Valdez MD
[2018-12-26 09:17] LABS: HEMATOCRIT 28.4 % (37.0-47.0); HEMOGLOBIN 9.4 g/dL (12.0-16.0); MCH 29.4 PG (27-31); MCHC 33.1 g/dL (33-37); MCV 88.8 FL (81-99); MPV 9.9 FL (7.4-10.4); RBC 3.2 XMIL (4.2-5.4); RDW 14.5 % (11.5-14.5); WBC 10.82 X1000 (4.8-10.8)
[2018-12-26 09:50] LABS: ALBUMIN 2.4 g/dL (3.5-5.0); CALCIUM 8.2 mg/dL (8.8-10.2); CREATININE 2.8 mg/dL (0.5-0.9); POTASSIUM 4.3 mmol/L (3.5-5.1)
[2018-12-26] MEDS: FISH OIL CONCENTRATE PO SCH (11:06)
[2018-12-26] MEDS: FERROUS SULFATE PO SCH ×3 (11:06→18:42)
[2018-12-26] MEDS: CLARITIN PO SCH (11:06)
[2018-12-26] MEDS: LOPID PO SCH ×2 (11:06→20:37)
[2018-12-26] MEDS: CARDIZEM CD PO SCH (11:07)
[2018-12-26] MEDS: ZYLOPRIM PO SCH (11:07)
[2018-12-26] MEDS: VITAMIN B-12 PO SCH (11:07)
[2018-12-26] MEDS: FLOMAX PO SCH (11:07)
[2018-12-26] MEDS: VITAMIN D PO SCH (11:07)
[2018-12-26] MEDS: LOPRESSOR PO SCH ×2 (11:08→20:36)
[2018-12-26] MEDS: NS 1,000 ML IV SCH ×2 (11:53→18:59)
--- NOTE | 2018-12-26 14:10 | GASTROENTEROLOGY PROGRESS NOTE ---
DATE: 12/26/2018 SUBJECTIVE: Ms. Pompa was sitting on the bed comfortably with no new complaints. She has tolerated her diet well. She is waiting for her lunch and denies any abdominal pain. Has not had any nausea or vomiting. Denies any melena or bright red blood per rectum. She has not noticed any hematuria anymore. OBJECTIVE: Vital Signs: On examination, temperature is 98.9 degrees, pulse is 90 per minute, breathing 18, blood pressure 139/61. Abdomen: Full, soft, nontender. Bowel sounds audible. LABORATORY DATA: Labs reviewed which showed hemoglobin 9.4 and hematocrit 28.6. IMPRESSION AND PLAN: Anemia secondary to gastrointestinal loss. She has also had hematuria that could have added insult to injury which could have also caused a drop in her hemoglobin and hematocrit. She needed EGD since her CT scan of the abdomen shows inflammation in the duodenum suspected of duodenitis or duodenal ulcer. We had offered her to proceed with EGD to get a definitive diagnosis, but the patient does not want any further intervention at this time. She would rather go home and follow up with her primary physician. I have advised her to let the nurses know if she changes her mind. We can schedule the EGD. Otherwise, follow up with her primary care and follow up with her glove cleaner. cc: Clinton Bourne MD
[2018-12-26] MEDS: PRAVACHOL PO SCH (20:37)
[2018-12-27] MEDS: CARAFATE LIQUID PO SCH ×4 (02:23→20:35)
[2018-12-27] MEDS: NS 1,000 ML IV SCH ×3 (02:23→18:46)
[2018-12-27] MEDS: PROTONIX IV SCH ×2 (04:56→16:46)
[2018-12-27] MEDS: ZOSYN 2.25 GM in NS 50 ML IV SCH ×4 (04:56→23:29)
[2018-12-27] MEDS: SODIUM CHLORIDE 0.9% INJ SCH ×2 (04:56→16:46)
[2018-12-27 06:27] LABS: HEMATOCRIT 26.9 % (37.0-47.0); HEMOGLOBIN 8.9 g/dL (12.0-16.0); MCH 29.6 PG (27-31); MCHC 33.1 g/dL (33-37); MCV 89.4 FL (81-99); MPV 10.1 FL (7.4-10.4); RBC 3.01 XMIL (4.2-5.4); RDW 14.3 % (11.5-14.5); WBC 8.93 X1000 (4.8-10.8)
[2018-12-27 07:29] LABS: ALBUMIN 2.3 g/dL (3.5-5.0); CALCIUM 7.8 mg/dL (8.8-10.2); CREATININE 2.7 mg/dL (0.5-0.9); PHOSPHORUS 3.3 mg/dL (2.7-4.5); POTASSIUM 4.2 mmol/L (3.5-5.1)
[2018-12-27] MEDS: VITAMIN B-12 PO SCH (08:56)
[2018-12-27] MEDS: LOPRESSOR PO SCH ×2 (08:56→20:35)
[2018-12-27] MEDS: CARDIZEM CD PO SCH (08:56)
[2018-12-27] MEDS: VITAMIN D PO SCH (08:56)
[2018-12-27] MEDS: FISH OIL CONCENTRATE PO SCH (08:56)
[2018-12-27] MEDS: CLARITIN PO SCH (08:56)
[2018-12-27] MEDS: FERROUS SULFATE PO SCH ×3 (08:57→16:46)
[2018-12-27] MEDS: ZYLOPRIM PO SCH (08:57)
[2018-12-27] MEDS: FLOMAX PO SCH (08:57)
[2018-12-27] MEDS: LOPID PO SCH ×2 (08:57→20:36)
--- NOTE | 2018-12-27 09:38 | Diag Imaging Result Doc PS360 ---
EXAM: RETROGRADES 2 OR 3 FILMS HISTORY: R RETROGRADES AND STENT INSERT TECHNIQUE: 24 films submitted COMPARISON: None. FINDINGS: Early films show retrograde filling of the right ureter. There is a filling defect in the mid ureter. A wire was placed in the ureter with a stent placed over the wire. The wire was then removed. IMPRESSION: [place] filling defect in the mid right ureter with a ureteral stent placed. Electronically signed by Gabriel Hanna 12/27/2018 9:35 AM
--- NOTE | 2018-12-27 12:06 | NEPHROLOGY PROGRESS NOTE ---
DATE: 12/27/2018 TIME SEEN: 0650. SUBJECTIVE: Ms. Pmopa sitting up in bed. She is resting quietly. States that she is feeling a little bit better. OBJECTIVE: Her Most Recent Vital Signs: Last temperature 98.6 degrees, blood pressure 110/56, heart rate 81, respirations are 18, she is currently on room air, and last recorded saturation is 100%. Intake and Output: She has had 3222 in, 1800 out to Hicks catheter. LABORATORIES: Sodium is 144, potassium 4.2, chloride 122, CO2 of 12, BUN 38, creatinine 2.7, glucose 89, anion gap is 10, calcium is 7.8, phosphorus 3.3, albumin is 2.3. White count 8.93, hemoglobin 8.9, hematocrit 26.9 with a platelet count of 179,000. PHYSICAL EXAMINATION: This is a 58-year-old female, resting quietly in bed. She is in no acute distress. Her skin is warm and dry.HEENT: Normocephalic, atraumatic. Conjunctiva is pale. She has BYRON. Her mucous membranes are dry. Neck is supple trachea midline. No evidence of JVD. Cardiovascular: She has regular rate and rhythm. She is without murmur or gallop. Her lungs are clear to auscultation bilateral. Equal excursion on room air. Abdomen is soft, nontender. Positive bowel sounds. Genitourinary: Hicks catheter is in place. She has pink-colored urine to her urometer and bag. Extremities: She has swelling to the left upper arm secondary to IV infusion infiltrate. Extremities have no edema. No clubbing or cyanosis to the lower extremities. Neurological: Alert and oriented x3. ASSESSMENT AND PLAN: 1. Post renal biopsy bleed. The patient is status post coil embolization. Hemoglobin is stable at 8.9. The patient remains at her historical baseline creatinine of 2.7. She has had adequate urine out documented. 2. Electrolytes and acid-base balance. The patient's electrolytes are stable. Her acid-base balance CO2 of 12. We will add sodium bicarbonate p.o. to her regimen. 3. Acute kidney injury. CT had hydronephrosis on the right and rise in her creatinine. The patient was seen by Dr. Hari Watts. She had a retrograde pyelogram of the right ureter with stent placement. Improved. OK for discharge and we will follow. rg 4. Anemia. More than likely this is secondary to patient's chronic kidney disease. She has had a recent bleed status post biopsy. Gastroenterology has been consulted. I would like to thank you for allowing us to follow with this patient. Dictated by KEIRY Prado for Tristan Shah MD cc: KEIRY Prado MD [facility]
[2018-12-27] MEDS: SODIUM BICARBONATE PO SCH ×2 (12:25→20:35)
--- NOTE | 2018-12-27 14:16 | PROGRESS NOTE ---
DATE: 12/27/2018 SUBJECTIVE: Patient reports feeling fine. No signs of GI bleeding. Apparently, she denies any hematemesis or melena. OBJECTIVE: Vital Signs: Temperature 97.8 degrees, heart rate 78, respiratory rate 16, blood pressure 140/61, and O2 saturation 100% on room air. General: On examination, this is a chronically ill-appearing, 58-year-old female lying in bed in no acute distress. Cardiovascular: S1, S2 heard. No murmurs, gallops, or rubs. Regular rate and rhythm. Respiratory: Clear bilaterally to auscultation. No work of breathing or using accessory muscles. Abdomen: Soft. Mildly, tenderness to palpation in the right side, but there are no signs of peritoneal irritation or guarding. Extremities: No clubbing, cyanosis, or edema. Peripheral pulses present in both legs. Neurological: Patient alert oriented x3. Moves 4 extremities. LABORATORY DATA: White cell count 9.8, 0.93, hemoglobin 8.9, hematocrit 26.9, and platelets 179,000 with BMP that is remarkable for creatinine of 2.7. Chloride 122 with BUN 38. ASSESSMENT/PLAN: 1. Significant hematuria and bleeding status post renal biopsy. The patient has been seen in the hospital for embolization 3 days ago. Hicks catheter shows clear urine. At this time, we are going to follow recommendations from Urology. 2. Acute on chronic kidney disease. According to Nephrology, patient's creatinine is 2.7, historical baseline. At this point, we will continue with the same management. 3. Nausea, vomiting and abdominal pain. We have consulted GI because there was a concern for also possible GI bleeding. Hemoglobin continues to drop. Today, I talked with the patient today but she does not want to do any esophagogastroduodenoscopy. I explained to her that it is important to stay at least until tomorrow to see if hemoglobin continues to drop, although there is no signs of overt GI bleeding. The patient acknowledged understanding. 4. Acute blood loss anemia. As we mentioned before, imaging showed possible duodenitis. The patient continues to refuse any EGD in the hospital. 5. Hyperkalemia resolved. 6. Gout. We will continue with allopurinol. 7. Hypertension. Blood pressure is under control. We will continue with the same management. 8. Disposition. At this point, we will wait for results of CBC and we will discuss with the patient as she is feeling ready to go home, and also we will check with Urology to see if they are also okay to send this patient home. cc: Marcelo Bowling MD MTDD
--- NOTE | 2018-12-27 18:32 | GASTROENTEROLOGY PROGRESS NOTE ---
DATE: 12/27/2018 SUBJECTIVE: Patient states she is feeling better. There has been no reported active GI bleeding. No reported melena or hematemesis. Patient is following with Nephrology. She had recent post renal biopsied bleeding and had embolization. She then had retrograde pyelogram and right ureter stent placement by Dr. Watts. They are following. OBJECTIVE: Vital Signs: Temperature 97.8 degrees, pulse 78, respirations 16, blood pressure 140/61. General: Patient is awake, alert, no acute distress. LABORATORY: Hematology: WBC 8.93, hemoglobin 8.9, hematocrit 26.9, MCV 89.4. Chemistry: Sodium 144, potassium 4.2, chloride 122, CO2 12, BUN 38, creatinine 2.7, glucose 89, calcium 7.8, phosphorus 3.3. ASSESSMENT AND PLAN: 1. Recent hematuria and bleeding status post renal biopsy. Patient had embolization. She has also following with Urology and Nephrology. 2. Abdominal pain has improved. There is no evidence of active GI bleeding. Will continue to monitor her hemoglobin and hematocrit. Further plans will be made according to her progress. I have discussed this case with Dr. Bourne. Dictated by KEIRY Lugo for Clinton Bourne MD cc: KEIRY Sage MD
[2018-12-27] MEDS: PRAVACHOL PO SCH (20:36)
[2018-12-28] MEDS: CARAFATE LIQUID PO SCH ×2 (02:19→09:43)
[2018-12-28] MEDS: PROTONIX IV SCH (04:46)
[2018-12-28] MEDS: SODIUM CHLORIDE 0.9% INJ SCH (04:46)
[2018-12-28] MEDS: ZOSYN 2.25 GM in NS 50 ML IV SCH (04:46)
[2018-12-28 06:50] LABS: HEMATOCRIT 30.2 % (37.0-47.0); HEMOGLOBIN 10.2 g/dL (12.0-16.0); MCH 30.4 PG (27-31); MCHC 33.8 g/dL (33-37); MCV 89.9 FL (81-99); MPV 10.2 FL (7.4-10.4); RBC 3.36 XMIL (4.2-5.4); RDW 14.6 % (11.5-14.5); WBC 7.55 X1000 (4.8-10.8)
[2018-12-28] MEDS: NS 1,000 ML IV SCH (07:36)
[2018-12-28 07:45] LABS: ALBUMIN 2.7 g/dL (3.5-5.0); CALCIUM 8.7 mg/dL (8.8-10.2); CREATININE 2.2 mg/dL (0.5-0.9); PHOSPHORUS 2.9 mg/dL (2.7-4.5)
--- NOTE | 2018-12-28 08:04 | PROGRESS NOTE ---
DATE: 12/28/2018 SUBJECTIVE: No acute events overnight. Patient is resting comfortably in bed. The patient's Hicks catheter was removed yesterday and patient has been able to spontaneously urinate. Denies any hematuria, dysuria, urgency, or frequency. Denies any flank pain or pressure. OBJECTIVE: Vital signs: Temperature 98.8 degrees, heart rate 78, blood pressure 156/69, oxygen saturation 100% on room air. General: Resting comfortably in bed, alert and oriented x3. Respiratory: Respiratory effort without audible wheezing or rales. Abdomen: Soft, nontender, nondistended. : No suprapubic tenderness. No CVA tenderness. Moving all extremities. LABS: White blood cell count 7.6, hemoglobin 10.4, hematocrit 30.2, platelets 202,000. GFR 28. ASSESSMENT AND PLAN: Ms. Pompa is a 58-year-old with chronic kidney disease, hypertension, hyperlipidemia, type 2 diabetes, who presented as a consult related to acute on chronic kidney disease and worsening renal function, as well as hematuria. The patient's creatinine increased from 2.5 to 3.5 following undergoing a renal biopsy. On 12/22/2018, subsequently developed significant hematuria and anemia, was transferred to [facility] where she underwent renal embolization. The patient clinically has improved since then. Her hematuria has resolved. She was taken to the operating room on Thursday for cystoscopy and right ureteral stent placement. The patient denies any discomfort or pain from this. Her Hicks catheter was removed yesterday and she has been able to spontaneously urinate without hematuria. From a urology standpoint she seems to have resolved. Recommend removal of stent in 1 week. This was relayed to the patient today. We will continue to monitor. Please call with questions or concerns. cc: Hari Watts MD MTDD
[2018-12-28 08:25] VITALS: BP 160/72
--- NOTE | 2018-12-28 09:41 | NEPHROLOGY PROGRESS NOTE ---
DATE: 12/28/2018 DATE AND TIME OF EXAM: 12/28/18 at 0700 hours. SUBJECTIVE: Ms. Pompa says she is ready to go home. She has no complaints. OBJECTIVE: Her most recent vital signs: Last temperature 98.9 degrees, blood pressure 156/69, heart rate 78, respirations 16. She is on room air. Last recorded saturation is 100%. She has had 3202 in. Patient has been voiding. She states that she has not been keeping track in the bedside commode. LABS: Her sodium is 144, potassium 4, chloride is 122, her CO2 is 11. BUN is 27, creatinine 2.2, glucose 85. Her anion gap is 11, calcium is 8.7, phosphorus 2.9, albumin 2.7. Her white count is 7.55, hemoglobin 10.2, hematocrit 30.2 with a platelet count of 202. PHYSICAL EXAMINATION: General: This is a 58-year-old, female resting quietly in bed. Skin: Warm and dry. HEENT: Normocephalic, atraumatic. Conjunctiva is pale pink. She has BYRON. Mucous membranes are dry. Neck: Supple. Trachea midline. No evidence of JVD. Cardiovascular: She is regular rate and rhythm. She is without murmur or gallop. Lungs: Clear to auscultation bilateral. Equal excursion on room air. Abdomen: Soft, nontender. Positive bowel sounds. Genitourinary: Not inspected. Hicks catheter has been removed. Patient states that she has been getting up to the bedside commode with assist. Extremities: Has swelling continued to the left upper arm. Otherwise, no edema to lower extremities. No clubbing or cyanosis. Neurological: Alert and oriented x3. ASSESSMENT AND PLAN: 1. Post renal biopsy bleed. The patient is status post coil embolization. Hemoglobin remains stable. The patient's creatinine remains at her historical baseline. From our perspective, patient is fine for discharge. We will follow with labs on and Thursday, and follow up in our office on Thursday with Dr. Ribeiro. 2. Electrolytes and acid-base balance. These remain stable. 3. Chronic kidney disease stage IIIB-IV. The patient's creatinine is at/or close to her historical baseline. 4. Biopsy with membranous nephropathy. rg I would like to thank you for allowing us to follow with this patient. Dictated by KEIRY Prado for Tristan Shah MD Face to face encounter, data reviewed, discussed with Fili Persaud on 12/28/18. I agree with the above assessment and plan of care. cc: KEIRY Prado MD [facility]
[2018-12-28] MEDS: LOPID PO SCH (09:42)
[2018-12-28] MEDS: FLOMAX PO SCH (09:42)
[2018-12-28] MEDS: CARDIZEM CD PO SCH (09:42)
[2018-12-28] MEDS: ZYLOPRIM PO SCH (09:42)
[2018-12-28] MEDS: VITAMIN D PO SCH (09:42)
[2018-12-28] MEDS: FISH OIL CONCENTRATE PO SCH (09:42)
[2018-12-28] MEDS: FERROUS SULFATE PO SCH (09:42)
[2018-12-28] MEDS: CLARITIN PO SCH (09:42)
[2018-12-28] MEDS: LOPRESSOR PO SCH (09:43)
[2018-12-28] MEDS: VITAMIN B-12 PO SCH (09:43)
[2018-12-28] MEDS: SODIUM BICARBONATE PO SCH (09:43)
--- NOTE | 2018-12-28 13:04 | DISCHARGE SUMMARY ---
ADMISSION DATE: 12/22/2018 DISCHARGE DATE: 12/28/2018 ADMITTING DIAGNOSES: 1. Status post renal CT biopsy. 2. Chronic kidney disease stage 3. 3. Hematuria. 4. Hypertension. DISCHARGE DIAGNOSES: 1. Status post renal CT biopsy. 2. Chronic kidney disease stage 3. 3. Hematuria. 4. Hypertension. 5. Acute blood loss anemia. 6. Gout. CONSULTATIONS: Dr. Shah with Nephrology. Dr. Watts with Urology. Dr. Bourne with Gastroenterology. DIAGNOSTIC PROCEDURES AND FINDINGS: Renal biopsy CT on 12/22/[address]- guided right renal biopsy. Abdomen and pelvis CT on 12/22/2018 with a small amount of right perirenal acute blood, but it is not more than would be expected given a recent right renal biopsy. Significant amount of acute blood in the right renal collecting system, right ureter and urinary bladder, with the development of mild hydronephrosis, as compared to the prebiopsy scan. Abdomen and pelvis CT on 12/24/2018 with excreted contrast and possible blood clots on the right renal collecting system and urinary bladder, slightly worsened perinephric edema and inflammatory changes in the anterior perirenal space on the right, inflammatory changes around the second portion of the duodenum which may be secondary to the above or due to interval development of duodenitis or duodenal ulcer disease. Cystoscopy on 12/25/[address] Watts showed hematuria, acute right hydronephrosis, right retrograde pyelogram and right ureteral stent placement was performed as well. HOSPITAL COURSE: Ms. Pompa is a 58-year-old female who was admitted from outpatient surgery after CT-guided renal biopsy. She has a known diagnosis of CKD and was having a biopsy done for evaluation. After biopsy, she started passing bright red blood clots vaginally. Postoperatively, a Hicks catheter was placed, and this returned sahni-colored urine, and she started having a mild drop in her hematocrit. Dr. Shah recommended she be admitted. Initial CT showed blood in the right collecting system. She was given light IV fluids and pain medication. We consulted Dr. Shah with Nephrology who did have her bladder irrigated copiously. Unfortunately she did not have improvement of her symptoms, and she actually started having low grade fever and leukocytosis. Her abdomen and pelvis CT was repeated on 12/24/2018, and it did show worsening perinephric edema and inflammatory changes on the right and possible duodenitis. The patient herself was complaining of abdominal pain, so we consulted Dr. Watts with Urology who did a cystoscopy and stent placement on the right. Her symptoms subsequently did slightly improve, but we consulted GI for the possibility of the duodenitis. They saw her and recommended EGD, but she declined at this time. Gastroenterology did recommend that she follow up with her PCP and have an EGD scheduled. Overall her symptoms improved nicely. Her hemoglobin and hematocrit did stabilized. She is now stable for discharge home. DISCHARGE MEDICATIONS: Vitamin D3 1000 units p.o. daily, vitamin B12 1000 mcg daily, Cardizem 180 mg daily, gemfibrozil 600 mg p.o. b.i.d., loratadine 10 mg daily, Lopressor 100 mg p.o. b.i.d., omega 3 1000 mg p.o. daily, Pravachol 40 mg p.o. at bedtime, Aldactone 50 mg daily, Zyloprim 300 mg daily, iron sulfate 5 mg p.o. t.i.d., omeprazole 20 mg daily, sodium bicarb 650 mg p.o. b.i.d., Flomax 0.4 mg p.o. daily. DISCHARGE LABS: WBC is 7.55, hemoglobin 10.2, hematocrit 30.2, platelet count 202. Sodium 144, potassium 4, chloride 122, CO2 is 11, BUN is 27, creatinine 2.2, calcium 8.7, albumin 2.7. DISCHARGE ACTIVITY: Resume activity as tolerated. DISPOSITION AND OTHER DISCHARGE INSTRUCTIONS: The patient is discharged home to self care. She is to follow up with Dr. Shah, Dr. Watts, Dr. Bourne and KEIRY Puente, as directed. She is to continue home medications and return to the ER or call 911 for worsening complaints or concerns. All questions answered. Discharge time is greater than 35 minutes. Dictated by KEIRY Jones for Marcelo Bowling MD Addendum: Patient seen and examined by myself. Agree with KEIRY note. It reflects my assessment and plan. Patient is being discharged in stable condition to home. cc: Celestino J. KEIRY Ramsay MD Khurshid Yousuf, MD Hari Watts, MD Tristan Shah, MD Angelika ALFARO
[2018-12-29 16:55] LABS: HEMOGLOBIN 12.9 g/dL (12.0-16.0)
== END 2018-12-28 10:31 | disposition home or self-care (01) | DRG 908 ==
LOC: CT 07:25 → 4N 07:25 → SUATTDRO 12:53 → OBSVTOIN 12:53
PROVIDERS: ATTEND Internal Medicine
CPT/HCPCS: 36430; 50200; 74176; 74420; 80048; 80069; 81001; 82009; 82270; 82565; 82805; 84520; 85014; 85018; 85025; 85027; 85610; 85730; 86850; 86900; 86901; 86920; 87040; 87088; 88300; 94761; A9270; C9113; J0330; J1200; J2270; J2405; J2543; J2550; J2597; J7030; P9016; S0164